=== PATIENT | female | born 1965 | race Caucasian/White ===

== ENCOUNTER 2024-10-22 16:36 | Emergency (ER) | payer OTHER, SELFPAY ==
[2024-10-22 16:38] VITALS: BP 126/82; PULSE 81; RESP 18; TEMP 36.3; O2SAT 98; BMI 31.1
--- NOTE | 2024-10-22 16:45 | EX.ED.DYSGE1 ---
HPI History of Present Illness Chief Complaint: Lower Extremity Injury PFSH PFSH Allergy/AdvReac Type Severity Reaction Status Date / Time No Known Allergies Allergy Verified 10/22/24 16:56 Surgical History (Updated 10/22/24 @ 16:54 by Jyothi Gan) History of tonsillectomy History of cholecystectomy Social History Smoking Status: Never smoker EXAM Physical Exam Const Vital Signs: 10/22/24 16:38 Temperature 97.4 F L Temperature Source Temporal Pulse Rate 81 Respiratory Rate 18 Blood Pressure 126/82 H Blood Pressure Mean 96 Pulse Ox 98 Oxygen Delivery Method Room Air [facility] [place] Medical decision making narrative: HISTORY OF PRESENT ILLNESS: 59-year-old female presents with knee pain. She states she has no known injury. Notes she had her knee looked bad 6 months ago and was told it was [id number]. She notes she is unable to tolerate the pain today. Notes last night she stepped off a very small ledge only few inches into her house and she has severe pain which is since improved. REVIEW OF SYSTEMS: Pertinent positives: Knee pain Pertinent negatives: Numbness, tingling, loss of sensation PHYSICAL EXAM: Nursing triage notes reviewed, Vital signs reviewed Constitutional: please see mdm Extremities: No edema, no obvious deformity, intact quadriceps tendon complex, no calf tenderness Neuro: Intact sensation L1-S1 dermatomal distributions. Intact 5/5 strength in hip flexion (T12-L3). Knee extension (L2-L4). Ankle dorsiflexion (L4-L5). Ankle plantar flexion (S1). Great toe extension (L5). 2+ patellar and Achilles DTRs. Skin: No rash or lesions noted, right lower extremity warm and well-perfused MEDICAL DECISION MAKING: Chief Complaint: Knee pain External records reviewed: Reviewed prior imaging studies, no recent imaging Factors affecting care: none Social determinants of health: none History obtained from others: none Consults: none [facility] Narrative: Patient was initially hemodynamically stable, afebrile and nontoxic-appearing. Exam without obvious deformity. No signs of infection. No bogginess, redness, warmth. No pain on proportion to exam. Painful but intact range of motion flexion extension of right knee. I considered the following differential diagnosis: Knee fracture, dislocation, patellar dislocation, quadriceps tendon rupture, arterial occlusion, arthritis, Cabrera's cyst ALL IMAGES (IF OBTAINED) HAVE BEEN PERSONALLY REVIEWED AND INTERPRETED BY MYSELF. X-ray of right knee was read reviewed person myself shows evidence of osteoarthritis. No evidence of fracture or dislocation. Radiologist agrees. The synthesis of the patient's history, physical exam, images suggest osteoarthritis. Patient was given close outpatient orthopedic follow-up for further assessment including MRI and possible assessment for knee replacement. The patient and/or family, caregivers express understanding. The patient and/or family, caregivers agrees with the plan. Shared decision making: I will have a discussion with the patient and or visitors regarding risk/benefits of further testing or admission. They will be made aware of of the risk/benefits inherent in this decision they will be given the opportunity to voice understanding. Total critical care time today provided was at least 0 minutes. This excludes separately billable procedures. Critical care time (if documented) is secondary to the patient having high probability of clinically significant/life threatening deterioration in the patient's condition which required my urgent intervention. Impression: 1. Acute on chronic right knee pain 2. Osteoarthritis Dispo: dc home This note was generated with [employer] dictation software. It may contain incorrect words, spelling, and punctuation that were not noted in review of the chart prior to signing. Radiography Diagnostic Testing: Clinical Impression(s) from Imaging Studies Knee X-Ray 10/22/24 17:15 IMPRESSION: Medial and patellofemoral compartmental arthrosis. No acute finding. Electronically Signed: Levy Espinal MD at 17:41 EST Reading Location ID and State: [address] [place] [address] , Service support , Discharge Plan Triage Chief Complaint: Lower Extremity Injury ED Provider: Asher Mcneal Dx/Rx/DC Orders Instructions: Osteoarthritis Knee Primary Care Provider: Maureen Rodriguez NP Referrals: Tal Schulz MD [Med Staff - Active Staff] - Activity Restrictions/Additional Instructions: Thank you for trusting us with your care today! Your XRay showed osteoarthritis. You will need close out patient orthopedic eval for replacement. Please take Tylenol (2 pills, 650 mg), ibuprofen (2 pills, 400 mg) every 6 hours as needed for pain and fever control. Please return to the emergency department if your symptoms change or worsen. Please follow with your primary care physician for further outpatient evaluation and management. Print Language: [place]an Disposition Disposition: Home, Self Care Discharge Date/Time: 10/22/24 18:31
--- NOTE | 2024-10-22 16:55 | ED.RN ---
PT WAS SEEN AT FOR HER RIGHT KNEE IN MAY OF 2024. PT STATES SHE IS ON HER FEET ALOT WITH WORK A [employer] AND SHE HAD A FALL LAST NIGHT AROUND 1800 WHEN STEPPING OVER A DOORWAY.
--- NOTE | 2024-10-22 17:15 | RAD_ITS ---
STUDY: X-RAY - RIGHT KNEE REASON FOR EXAM: Female, 59 years old. Knee pain. TECHNIQUE: 4 view(s) of the knee. COMPARISON: None. FINDINGS: Normal visualized distal femur. Normal visualized proximal tibia and fibula. Normal proximal tibiofibular articulation. Moderate arthrosis of the medial compartment with osteophyte formation. Normal lateral femorotibial compartment. Slight lateral tilt of the patella with mild arthrosis of the medial patellofemoral compartment. The soft tissue structures are normal. RAD/Knee 4 or More Views IMPRESSION: Medial and patellofemoral compartmental arthrosis. No acute finding. Electronically Signed: Levy Espinal MD at 17:41 EST ,
--- NOTE | 2024-10-22 18:22 | ED.RN ---
PT AND WERE EAGER TO BE D/C. NO FINAL VS WERE TAKEN.
== END 2024-10-22 18:31 | disposition home or self-care (01) ==
PROVIDERS: Emergency Provider Emergency Medicine; PCP Nurse Practitioner Primary Care; Visit Provider Emergency Medicine
DX: M25.561 Pain in right knee (principal); G89.29 Other chronic pain; M17.11 Unilateral primary osteoarthritis, right knee
CPT/HCPCS: 73564; 99282